=== PATIENT | male | born 1945 | race Caucasian/White ===

== ENCOUNTER → 2019-12-17 08:51 | Outpatient (BNVA) | payer MEDICARE, OTHER, SELFPAY | PROVIDERS: Family Provider Nurse Practitioner Family; PCP Nurse Practitioner Family; Visit Provider Specialist | DX: G20 Parkinson's disease (principal) | CPT/HCPCS: 99214 ==

== ENCOUNTER 2021-11-06 16:53 | Inpatient (IN) | payer OTHER, MEDICARE, SELFPAY ==
[2021-11-06 17:00] VITALS: BP 145/90; PULSE 99; RESP 18; TEMP 37.4; O2SAT 95; BMI 26.6
--- NOTE | 2021-11-06 17:05 | ED_ITS ---
HPI - General Adult General: Chief complaint: Abdominal Pain Stated complaint: CONSTIPATION Time Seen by Provider: 11/06/21 16:56 History of Present Illness: Patient is a 76-year-old male with a history of constipation who presents the emergency room with concerns for generalized abdo sangeetha pain and constipation. Per patient, he has not improved in the last 8 days despite multiple treatments Milk of Magnesia and enema. Patient does me that she he also has mild nonspecific abdominal pain. Patient denies any nausea/vomiting fever/chills, diarrhea, melena/hematochezia. No complaints. No other focal complaints at this time. Onset: 8 days ago Duration:8 days Location:home Severity:moderate Associated symptoms: Deny chest pain, dyspnea, nausea, rash, palpitations or vomiting Review of Systems Const: Denies: fever(s) or chills Eyes: Denies: change in vision ENMT: Denies: mouth pain Card: Denies: chest pain or palpitations Resp: Denies: dyspnea or non-productive cough GI: Reports: other (constipation); Denies: abdominal pain, nausea, vomiting or diarrhea : Denies: dysuria Musc: Denies: extremity pain Skin/Breast: Denies: rash or new lesions Neuro: Denies: weakness in extremities Psych: Reports: other (Normal mood) Momo/Lymph: Denies: easy bruising [facility] ED PFSH: Medical History (Updated 11/07/21 @ 12:30 by Kingsley Mcdonough MD) Parkinson disease Surgical History (Updated 11/07/21 @ 12:30 by Kingsley Mcdonough MD) H/O cataract extraction Family History Father Parkinson disease Grandfather Parkinson disease Social History Smoking and tobacco status: former smoker Quit status (tobacco): has quit using tobacco Year quit tobacco: 30 years ago Physical Exam Const: COMMON NORMALS: alert HENMT: COMMON NORMALS: atraumatic HEAD & SCALP: atraumatic MOUTH: moist mucous membranes not abnormal Eye: COMMON NORMALS: EOMs intact bilaterally and conjunctivae normal CONJUNCTIVA: Yes conjunctivae normal Neck/C-Spine: COMMON NORMALS: full ROM and supple Resp: COMMON NORMALS: normal respiratory effort and clear to auscultation bilaterally AUSCULTATION: clear to auscultation bilaterally Cardio: COMMON NORMALS: regular rate RATE: regular rate GI: COMMON NORMALS: Soft to palpation and non-tender PALPATION: Yes Soft to palpation Extremity: COMMON NORMALS: full ROM Neuro: SENSORIUM/ORIENTATION: Yes alert MOTOR EXAM: No Abnormal motor strength present and Other motor observations present (no focal motor deficits) Psych: COMMON NORMALS: speech normal SPEECH: Yes normal speech MOOD & AFFECT: Yes euthymic mood Course 2 Vital Signs: Vital signs: Vital Signs Temperature 99.0 F 11/10/21 11:33 Pulse Rate 86 11/10/21 11:33 Respiratory Rate 17 11/10/21 11:33 Blood Pressure 112/68 11/10/21 11:33 Pulse Oximetry 92 11/10/21 11:33 [facility] - General Adult Medical Decision Making 86-year-old male with history of Parkinson's disease presenting to the emergency room with decreased stooling possible constipation x8 days. Visible exam, patient has mild generalized abdominal tenderness to palpation. No guarding or rebound tenderness. Patient has minimal white count 7.1. Afebrile. Patient was noted to have constipation on CT scan with possible stercoral colitis. I discussed findings of stercoral colitis with Dr. Mcdonough who recommended obs ervation and GoLytely at this time. No need for antibiotics given patient is afebrile, minimal leukocytosis. We will repeat blood work in a.m. to determine whether stercoral colitis is worsening. Disposition: admission Lab Data : 11/10/21 03:16 11/10/21 03:16 Radiology Impressions Abdomen/Pelvis CT 11/06/21 17:17 IMPRESSION: 1. Constipation with possible fecal impaction. 2. Possible stercoral colitis. Abdomen X-Ray 11/10/21 06:00 IMPRESSION: 1. Moderate gaseous distention of the colon that probably represents a mild colonic ileus. 2. There has been evacuation of most of the stool from the colon since the previous study. Laboratory Results WBC 8.2 10^3/uL (4.0-10.0) 11/08/21 04:22 RBC 5.03 10^6/uL (4.1-5.3) 11/08/21 04:22 Hgb 14.8 g/dL (11.7-16.6) 11/08/21 04:22 Hct 46.3 % (42.0-52.0) 11/08/21 04:22 MCV 92.0 fl (80-94) 11/08/21 04:22 MCH 29.4 pg (28.0-34.0) 11/08/21 04: MCHC 32.0 g/dL (30.0-36.0) 11/08/21 04: RDW 12.3 % (12.1-15.1) 11/08/21 04:22 Plt Count 177 10^3/cmm (130-400) 11/08/21 04:22 MPV 10.0 fL (7.4-10.4) 11/08/21 04:22 Neut % (Auto) 72.8 % 11/08/21 04: Lymph % (Auto) 13.5 % 11/08/21 04: Grainger % (Auto) 10.6 % 11/08/21 04: Eos % (Auto) 2.3 % 11/08/21 04: Baso % (Auto) 0.4 % 11/08/21 04:22 Neut # (Auto) 5.99 10^3/uL (1.8-7.7) 11/08/21 04: Lymph # (Auto) 1.1 10^3/uL (0.8-4.8) 11/08/21 04:22 Grainger # (Auto) 0.9 10^3/uL (0.2-0.9) 11/08/21 04: Eos # (Auto) 0.2 10^3/uL (0.0-0.8) 11/08/21 04:22 Baso # (Auto) 0.0 10^3/uL (0.0-0.1) 11/08/21 04: Nucleated RBC % (auto) 0 % 11/08/21 04: Nucleated RBCs # 0.0 /100WBC 11/08/21 04: PT 14.10 SECONDS (12.1-14.9) 11/06/21 21:45 INR 1.06 (0.8-1.2) 11/06/21 21:45 APTT 19.9 SECONDS (23.9-36.7) L 11/06/21 21:45 Sodium 137 mmol/L (136-145) 11/08/21 09:45 Potassium 3.6 mmol/L (3.5-5.1) 11/08/21 09:45 Chloride 107 mmol/L (98-107) 11/08/21 09:45 Carbon Dioxide 22 mmol/L (22-29) 11/08/21 09:45 Anion Gap 11.6 (5-19) 11/08/21 09:45 BUN 6 mg/dL (8-23) L 11/08/21 09:45 Creatinine 0.5 mg/dL (0.7-1.2) L 11/08/21 09:45 GFR Calculation Not Reportable 11/08/21 09:45 Glucose 136 mg/dL (65-115) H 11/08/21 09:45 Calculated Osmolality 284 mOsm/kg (285-295) L 11/08/21 09:45 Calcium 8.7 mg/dL (8.5-10.5) 11/08/21 09:45 Total Bilirubin 0.6 mg/dL (0.15-1.2) 11/07/21 02:45 AST 11 U/L (0-40) 11/07/21 02:45 ALT < 5 U/L (0-41) 11/07/21 02:45 Alkaline Phosphatase 69 IU/L (40-130) 11/07/21 02:45 Total Protein 6.8 g/dL (6.6-8.7) 11/07/21 02:45 Albumin 3.9 g/dL (3.5-5.2) 11/07/21 02:45 Globulin 2.9 g/dL (1.3-4.6) 11/07/21 02:45 Lipase 24 U/L (13-60) 11/06/21 17:10 Urine Color Colorless (Yellow) 11/06/21 17:20 Urine Appearance Clear (CLEAR) 11/06/21 17:20 Urine pH 7 (5-7) 11/06/21 17:20 Ur Specific [place] 1.010 (1.005-1.030) 11/06/21 17:20 Urine Protein Neg (Negative) 11/06/21 17:20 Urine Glucose (UA) Norm (Normal) 11/06/21 17:20 Urine Ketones 1+ (Negative) H 05/23/22 17:20 Urine Blood Neg (Negative) 11/06/21 17:20 Urine Nitrate Negative (Negative) 11/06/21 17:20 Urine Bilirubin Neg (Negative) 11/06/21 17:20 Urine Urobilinogen Norm mg/dL (Negative) 11/06/21 17:20 Ur Leukocyte Esterase Negative (Negative) 11/06/21 17:20 Imaging Data Other Imaging: Radiologist's impression: [address] [address] [address] Scan Report Signed Patient: Andrew Osman Unit #: [id number] : 1945 Age/Sex: 76 / M ADM Date: 11/06/21 Loc: ER Room/Bed: Attending Dr: Ordering Provider/Ordering MD: Anupama Desai MD Date of Service: 11/06/21 Procedure(s): CT abdomen pelvis wo con [id number] Accession Number(s): [id number] Report Number: [id number] PROCEDURE INFORMATION: Exam: CT Abdomen And Pelvis Without Contrast Exam date and time: 11/06/2021 6:28 PM Age: 76 years old Clinical indication: Constipation; Additional info: Constipation and abd pain TECHNIQUE: Imaging protocol: Computed tomography of the abdomen and pelvis without contrast. Radiation optimization: All CT scans at this facility use at least one of these dose optimization techniques: automated exposure control; mA and/or kV adjustment per patient size (includes targeted exams where dose is matched to clinical indication); or iterative reconstruction. COMPARISON: CT chest wo con [id number] 04/01/2019 9:08 AM RADIATION DOSE METRICS: Total DLP (mGy-cm): 1938 FINDINGS: Limitations: The absence of intravenous contrast lessens the sensitivity of this study for solid organ abnormalities. Study somewhat limited due to streak artifact created by the patient being scanned with the arms at the sides. Diaphragm: A large hiatal hernia is present. Liver: Focal hypodensities inferior right lobe of the liver likely small cysts or benign hemangiomas not significantly changed. Gallbladder and bile ducts: The gallbladder is normal. Pancreas: The pancreas is normal. Spleen: The spleen is normal. Adrenal glands: The adrenal glands are normal. Kidneys and ureters: Probable small cyst arising from the lateral aspect of the mid right kidney. The left kidney is normal. There is no evidence of hydronephrosis. There is no evidence of renal or ureteral calcifications. Stomach and bowel: There is a large amount of feces seen through the colon which could represent some constipation. Very large amount of feces seen in the rectum may represent fecal impaction. There is some mild rectal wall thickening in some mild stranding in the perirectal fat. Findings could represent some stercoral colitis. Appendix: A normal appendix is identified. Intraperitoneal space: Unremarkable. No free air. No significant fluid collection. Vasculature: The aorta demonstrates mild atherosclerotic calcification. Lymph nodes: Unremarkable. No enlarged lymph nodes. Urinary bladder: Unremarkable as visualized. Reproductive: The prostate gland demonstrates nonspecific parenchymal calcifications. Bones/joints: Unremarkable. No acute fracture. Soft tissues: There is small inguinal hernias containing only fat. CT/CT abdomen pelvis wo con [id number] IMPRESSION: 1. Constipation with possible fecal impaction. 2. Possible stercoral colitis. ? Dictated By: Keo Grijalva Signed By: Keo Grijalva Signed Date/Time: 11/06/211921 DD/ 27 Discharge Plan Discharge Patient Disposition: Admitted As Inpatient Admit Provider: Gumaro Urena Clinical Impression: Constipation, Abdominal pain, Stercoral colitis Condition: Stable Discharge Diet: Advance as tolerated, As Directed and Full LIquid Discharge Activity: Increase activity as tolerated Coding Level of Care Code ED Photograph Developer for Isabella Fwd Exam Comprehensive
[2021-11-06 17:06] VITALS: BP 121/90; PULSE 103; RESP 18; TEMP 36.8; O2SAT 95
[2021-11-06 17:15] LABS: Basophils % 0.6 %; Eosinophils # 0.1 10^3/uL (0.0-0.8); Eosinophils % 1.7 %; Hematocrit 46.3 % (42.0-52.0); Lymphocytes # 1.3 10^3/uL (0.8-4.8); Lymphocytes % 18.8 %; Mean Corpuscular HGB Conc 32.4 g/dL (30.0-36.0); Mean Corpuscular Volume 89.6 fl (80-94); Mean Platelet Volume 9.5 fL (7.4-10.4); Monocytes # 0.7 10^3/uL (0.2-0.9); Neutrophils # 4.88 10^3/uL (1.8-7.7); Neutrophils % 68.6 %; Nucleated Red Blood Cells % 0 %; Platelet Count 200 10^3/cmm (130-400); Red Blood Count 5.17 10^6/uL (4.1-5.3); White Blood Count 7.1 10^3/uL (4.0-10.0)
--- NOTE | 2021-11-06 17:17 | CTR_ITS ---
PROCEDURE INFORMATION: Exam: CT Abdomen And Pelvis Without Contrast Exam date and time: 11/06/2021 6:28 PM Age: 76 years old Clinical indication: Constipation; Additional info: Constipation and abd pain TECHNIQUE: Imaging protocol: Computed tomography of the abdomen and pelvis without contrast. Radiation optimization: All CT scans at this facility use at least one of these dose optimization techniques: automated exposure control; mA and/or kV adjustment per patient size (includes targeted exams where dose is matched to clinical indication); or iterative reconstruction. COMPARISON: CT chest wo con [id number] 04/01/2019 9:08 AM RADIATION DOSE METRICS: Total DLP (mGy-cm): 1938 FINDINGS: Limitations: The absence of intravenous contrast lessens the sensitivity of this study for solid organ abnormalities. Study somewhat limited due to streak artifact created by the patient being scanned with the arms at the sides. Diaphragm: A large hiatal hernia is present. Liver: Focal hypodensities inferior right lobe of the liver likely small cysts or benign hemangiomas not significantly changed. Gallbladder and bile ducts: The gallbladder is normal. Pancreas: The pancreas is normal. Spleen: The spleen is normal. Adrenal glands: The adrenal glands are normal. Kidneys and ureters: Probable small cyst arising from the lateral aspect of the mid right kidney. The left kidney is normal. There is no evidence of hydronephrosis. There is no evidence of renal or ureteral calcifications. Stomach and bowel: There is a large amount of feces seen through the colon which could represent some constipation. Very large amount of feces seen in the rectum may represent fecal impaction. There is some mild rectal wall thickening in some mild stranding in the perirectal fat. Findings could represent some stercoral colitis. Appendix: A normal appendix is identified. Intraperitoneal space: Unremarkable. No free air. No significant fluid collection. Vasculature: The aorta demonstrates mild atherosclerotic calcification. Lymph nodes: Unremarkable. No enlarged lymph nodes. Urinary bladder: Unremarkable as visualized. Reproductive: The prostate gland demonstrates nonspecific parenchymal calcifications. Bones/joints: Unremarkable. No acute fracture. Soft tissues: There is small inguinal hernias containing only fat. CT/CT abdomen pelvis wo con [id number] IMPRESSION: 1. Constipation with possible fecal impaction. 2. Possible stercoral colitis.
[2021-11-06 17:27] LABS: Add Urine Microscopic? NO; Charge for UA Resulting for Rev
[2021-11-06 17:39] LABS: Glucose Urine UA Norm (Normal); Protein Urine Neg (Negative); Urine Appearance Clear (CLEAR); Urine Color Colorless (Yellow); pH Urine 7 (5-7)
[2021-11-06 17:40] LABS: Bilirubin Urine Neg (Negative); Blood Urine Neg (Negative); Ketones Urine 1+ (Negative); Leukocyte Esterase Urine Negative (Negative); Nitrate Urine Negative (Negative); Urobilinogen Urine Norm (Negative)
[2021-11-06 18:16] LABS: Alanine Aminotransferase < 5 U/L (0-41); Albumin Level 4.3 g/dL (3.5-5.2); Alkaline Phosphatase 70 IU/L (40-130); Anion Gap 13.9 (5-19); Aspartate Amino Transferase 10 U/L (0-40); Blood Urea Nitrogen 7 mg/dL (8-23); Calcium 9.2 mg/dL (8.5-10.5); Carbon Dioxide 26 mmol/L (22-29); Chloride 102 mmol/L (98-107); Globulin 2.4 g/dL (1.3-4.6); Glucose 105 mg/dL (65-115); Lipase 24 U/L (13-60); Osmolality Calculated 284 mOsm/kg (285-295); Potassium 3.9 mmol/L (3.5-5.1); Sodium 138 mmol/L (136-145); Total Bilirubin 0.5 mg/dL (0.15-1.2); Total Protein 6.7 g/dL (6.6-8.7)
[2021-11-06 18:54] VITALS: BP 138/61; PULSE 88; RESP 18; TEMP 36.6; O2SAT 97
--- NOTE | 2021-11-06 19:06 | PC.NURSE ---
Received report. 76 yo male presents with abdominal discomfort and no BM x 8 days even with MOM and enema. He has advanced Parkinsons dz and states patient appetite has dwindled coupled with bad dentation. and it seems its getting more difficult for him to drink fluids without getting choked. awaiting CT results.
--- NOTE | 2021-11-06 20:21 | PM.HP ---
Providers/Chief Complaint Chief Complaint: CONSTIPATION History of Present Illness Patient is a 76-year-old male who presents with chief complaint of constipation.? He indicates that his last bowel movement was possibly 8 days prior to hospitalization.? Per the patient?s daughter, he was administered milk of magnesia as well as enemas however this did not improve this.? She indicates that his constipation has been recurrent since the diagnosis/progression of his Parkinson?s disease.? The patient does not take narcotics at home.? He denies fever, rigors, nausea, vomiting, abdominal pain. ?He presented for further evaluation Review of Systems General: Reports: 10 or more systems reviewed and unremarkable except in HPI and below Medications/Allergies Home Medications Medication Instructions Recorded Confirmed Last Taken Type omeprazole 20 mg capsule,delayed 20 mg PO DAILY 12/17/19 11/06/21 11/06/21 History release carbidopa 25 mg-levodopa 100 mg See Rx Instructions PO TID #720 tab 06/27/20 11/06/21 11/06/21 Rx tablet (Sinemet) Lift Chair #1 ea 06/28/20 11/06/21 Unknown Rx docusate calcium 240 mg capsule 240 mg PO DAILY PRN #20 cap 11/06/21 Unknown Rx mirtazapine 7.5 mg tablet 7.5 mg PO BEDTIME 11/06/21 11/06/21 11/05/21 History polyethylene glycol 3350 17 8.5 g PO DAILY PRN 28 Days #238 g 11/06/21 Unknown Rx gram/dose oral powder (Miralax) Allergies Allergy/AdvReac Type Severity Reaction Status Date / Time No Known Allergies Allergy Verified 11/06/21 17:29 PFSH Acute PFSH: Family History Father Parkinson disease Grandfather Parkinson disease Social History Smoking and tobacco status: former smoker Quit status (tobacco): has quit using tobacco Year quit tobacco: 30 years ago Vitals/I&O/Wt Last Vital Signs Temp 97.9 F 11/06/21 18:54 Pulse 88 11/06/21 18:54 Resp 18 11/06/21 18:54 BP 138/61 11/06/21 18:54 Pulse Ox 97 11/06/21 18:54 Weight last 48 hrs Weight 81.647 kg Physical Exam Narrative: General: -Alert -No acute distress -No dyspnea -No tachypnea Head: -Atraumatic -Normocephalic Eyes: -Pupils equally round and reactive to light and accommodation -Extraocular muscles intact Neurological: -Cranial nerves II-XII intact Neck: -No jugular venous distention -No thyromegaly -No cervical lymphadenopathy Heart: -Regular rate -Regular rhythm -No murmurs -No gallops -No rubs Lungs: -No wheeze -No rhonchi -No rales ? Abdomen: -Normal bowel sounds in all four quadrants -No rebound -No guarding -No tenderness Extremities: -2/4 pulse in all four extremities -No clubbing -No cyanosis -No edema -No calf tenderness present bilaterally -Negative Christoph?s sign bilaterally Musculoskeletal: -5/5 bilateral upper extremity strength -5/5 bilateral lower extremity strength -Sensorium of bilateral upper extremities are equal and intact -Sensorium of bilateral lower extremities are equal and intact ? Additional Details / Additional Findings / Exceptions / Miscellaneous: Data : 11/06/21 17:10 11/06/21 17:10 A&P Assessment and plan (1) Constipation: Status: Acute Plan constipation with question of fecal impaction and with question of stercoral colitis. Nothing by mouth. D5 NS at 75 ML's per hour. Colace 200 Mill grams by mouth twice a day plus senna 17.2 Mill cans by mouth twice a day. Patient will see Fleet enema every 4 hours ?3 doses with stoppage after first large bowel movement. If we do not see a large bowel movement within the next 12 hours, we may consider consulting surgery for surgical disimpaction Parkinson's disease GERD Hyperlipidemia Hypertension DVT Proflex is. Bilateral SCD Attestations Medical Necessity Statement*: the patient's anticipate length of stay is less than 2 midnights for treatment of his constipation Coding Level of Care Code Acute Financial Analyst Accountant for Isabella Velazquez Diagnoses Constipation K59.00
[2021-11-06 21:28] VITALS: BP 136/83; PULSE 95; RESP 20; O2SAT 96
[2021-11-06 22:02] LABS: INR 1.06 (0.8-1.2); Partial Thromboplastin Time 19.9 SECONDS (23.9-36.7)
[2021-11-06 22:24] VITALS: BP 140/82; PULSE 93; RESP 18; TEMP 36.6; O2SAT 94
--- NOTE | 2021-11-06 22:37 | PC.NURSE ---
[facility] brought Mr. Osman to the floor and Mrs. Osman was following behind. During transport in the vidal by CT Alison stated taht she heard Mrs. Osman trip and fall and then she assisted her back to her feet. Once to the floor Alison notified this nurse. This nurse went into the room and spoke to Mrs. Osman and encouraged her to go to the ER to be evaluated but she declined. Advised her that if she changed her mind to let us know and we would take her to the ER to be evaluated, she verbalized understanding.
[2021-11-06] MEDS: acetaminophen 325 mg Tablet 650 MG PO (23:01)
[2021-11-06] MEDS: dextrose 5%-sod chloride 0.9% 1,000 ML 75 ML IV (23:01)
[2021-11-06] MEDS: Fleet Enema 133 mL Enema PR (23:27)
[2021-11-07 03:12] LABS: Basophils % 0.5 %; Eosinophils # 0.1 10^3/uL (0.0-0.8); Eosinophils % 1.3 %; Lymphocytes # 0.7 10^3/uL (0.8-4.8); Lymphocytes % 9.7 %; Mean Corpuscular HGB Conc 31.9 g/dL (30.0-36.0); Mean Corpuscular Hemoglobin 29.1 pg (28.0-34.0); Mean Corpuscular Volume 91.3 fl (80-94); Mean Platelet Volume 9.8 fL (7.4-10.4); Monocytes # 0.8 10^3/uL (0.2-0.9); Monocytes % 10.9 %; Neutrophils # 5.75 10^3/uL (1.8-7.7); Neutrophils % 77.2 %; Nucleated Red Blood Cells % 0 %; Platelet Count 191 10^3/cmm (130-400); Red Blood Count 5.15 10^6/uL (4.1-5.3); White Blood Count 7.5 10^3/uL (4.0-10.0)
[2021-11-07 03:14] VITALS: BP 139/80; PULSE 96; RESP 18; TEMP 36.4; O2SAT 95
[2021-11-07 03:34] LABS: Alanine Aminotransferase < 5 U/L (0-41); Albumin Level 3.9 g/dL (3.5-5.2); Alkaline Phosphatase 69 IU/L (40-130); Anion Gap 14.2 (5-19); Aspartate Amino Transferase 11 U/L (0-40); Blood Urea Nitrogen 8 mg/dL (8-23); Calcium 8.8 mg/dL (8.5-10.5); Carbon Dioxide 23 mmol/L (22-29); Chloride 103 mmol/L (98-107); Globulin 2.9 g/dL (1.3-4.6); Glucose 126 mg/dL (65-115); Osmolality Calculated 282 mOsm/kg (285-295); Potassium 4.2 mmol/L (3.5-5.1); Sodium 136 mmol/L (136-145); Total Bilirubin 0.6 mg/dL (0.15-1.2); Total Protein 6.8 g/dL (6.6-8.7)
[2021-11-07] MEDS: Fleet Enema 133 mL Enema PR ×2 (04:18→08:40)
[2021-11-07 08:00] VITALS: BP 149/79; PULSE 93; RESP 20; TEMP 37.9; O2SAT 94
[2021-11-07] MEDS: docusate sodium 100 mg Capsule 200 MG PO ×2 (08:39→18:11)
[2021-11-07] MEDS: acetaminophen 325 mg Tablet 650 MG PO ×2 (08:39→18:11)
[2021-11-07] MEDS: sennosides 8.6 mg Tablet 17.2 MG PO ×2 (08:39→18:11)
[2021-11-07] MEDS: piperacillin-tazobactam 3.375 GM in sodium chloride 0.9% (plus) 50 ML IV ×2 (11:10→18:04)
[2021-11-07 11:44] VITALS: BP 135/77; PULSE 90; RESP 21; TEMP 37.7; O2SAT 93
[2021-11-07] MEDS: dextrose 5%-sod chloride 0.9% 1,000 ML 75 ML IV (12:21)
--- NOTE | 2021-11-07 12:28 | PM.CONSULT ---
Providers/Reason For Consult Consulting Physician/Specialty*: General Surgery Dr. Mcdonough Reason for Consult*: Stercoral colitis Attending Physician: Robert Hudson History of Present Illness History of Present Illness Andrew Osman is a 76 year old male who presented to the ER yesterday with abdominal pain and constipation in spite of taking milk of magnesia and enemas for multiple days. He denies any nausea, vomiting and his pain is mainly in the lower abdomen. No similar episodes in the past. Patient has history of Parkinson's disease. As per his , there has been no significant bleeding per rectum Review of Systems General: Reports: 10 or more systems reviewed and unremarkable except in HPI and below Medications/Allergies Home Medications Medication Instructions Recorded Confirmed Last Taken Type omeprazole 20 mg capsule,delayed 20 mg PO DAILY 12/17/19 11/06/21 11/06/21 History release carbidopa 25 mg-levodopa 100 mg See Rx Instructions PO TID #720 tab 06/27/20 11/06/21 11/06/21 Rx tablet (Sinemet) Lift Chair #1 ea 06/28/20 11/06/21 Unknown Rx docusate calcium 240 mg capsule 240 mg PO DAILY PRN #20 cap 11/06/21 Unknown Rx mirtazapine 7.5 mg tablet 7.5 mg PO BEDTIME 11/06/21 11/06/21 11/05/21 History polyethylene glycol 3350 17 8.5 g PO DAILY PRN 28 Days #238 g 11/06/21 Unknown Rx gram/dose oral powder (Miralax) acetaminophen 325 mg tablet 325 mg PO QID PRN 11/07/21 11/07/21 Unknown History (Tylenol) food supplemt, lactose-reduced 1 ea PO DAILY 11/07/21 11/07/21 Unknown History 0.04 gram-1 kcal/mL oral liquid (Boost) ondansetron HCl 4 mg tablet 4 mg PO Q4H PRN 11/07/21 11/07/21 Unknown History Allergies Allergy/AdvReac Type Severity Reaction Status Date / Time No Known Allergies Allergy Verified 11/06/21 17:29 Current Medications Generic Name Dose Route Start Last Admin Trade Name Freq PRN Reason Stop Dose Admin Acetaminophen 650 mg 11/06/21 22:20 11/07/21 08:39 Acetaminophen 325 Mg Tablet PO 650 mg Q6H PRN Administration Mild/Mod Pain Or Temp >/= 101 Docusate Sodium 200 mg 11/07/21 09:00 11/07/21 08:39 Docusate Sodium 100 Mg Capsule PO 200 mg BID GEE Administration Dextrose/Sodium Chloride 1,000 mls @ 75 mls/hr 11/06/21 22:20 11/07/21 12:21 Dextrose 5%-Sod Chloride 0.9% IV 75 mls/hr .[id number] GEE Administration Piperacillin Sod/Tazobactam 50 mls @ 12.5 mls/hr 11/07/21 09:00 11/07/21 11:10 Sod 3.375 gm/ Sodium Chloride IV 12.5 mls/hr Q8H GEE Administration Protocol Senna 17.2 mg 11/07/21 09:00 11/07/21 08:39 Sennosides 8.6 Mg Tablet PO 17.2 mg BID GEE Administration PFSH Acute PFSH: Medical History (Updated 11/07/21 @ 12:30 by Kingsley Mcdonough MD) Parkinson disease Surgical History (Updated 11/07/21 @ 12:30 by Kingsley Mcdonough MD) H/O cataract extraction Family History Father Parkinson disease Grandfather Parkinson disease Social History Smoking and tobacco status: former smoker Quit status (tobacco): has quit using tobacco Year quit tobacco: 30 years ago Vitals/I&O/Wt Last Vital Signs Temp 99.8 F H 11/07/21 11:44 Pulse 90 11/07/21 11:44 Resp 21 H 11/07/21 11:44 BP 135/77 11/07/21 11:44 Pulse Ox 93 11/07/21 11:44 11/06/21 11/07/21 11/07/21 22:59 06:59 14:59 Intake Total 1018 / 1018 Output Total 125 / 125 Balance -125 / -125 1018 / 1018 Weight last 48 hrs Weight 180 lb Physical Exam Narrative: Abdomen: Soft to palpation, mildly tender in the left lower quadrant Urinary Catheter Management: Jennings: Cath Placed During This Visit: yes Reason for Continuing Indwelling Catheter: Required Immobilization for Trauma or Surgery or Anesthesia Urinary Catheter Date of Insertion: 11/07/21 Urinary Catheter Time of Insertion: 23:45 Data : 11/09/21 04:45 11/09/21 04:45 A&P Assessment and plan (1) Constipation: 76-year-old male on hospice with chronic constipation who has mild tenderness in the left lower quadrant, no guarding or rigidity on physical exam. CT abdomen pelvis showed constipation with severe possible stercoral colitis . Admit as inpatient Start MiraLAX and enemas today Abdominal series tomorrow Status: Acute (2) Stercoral colitis: Patient had T-max of 100+, continue IV Zosyn Status: Acute Consult Attestations Medical Necessity Statement: As per attending physician Coding Level of Care Code Acute Artistic Associate for Isabella Velazquez Diagnoses Constipation K59.00 Stercoral colitis K52.89
--- NOTE | 2021-11-07 15:47 | P.PN_ITS ---
Subjective Subjective: Small liquid bowel movements, has not yet had a large bowel movement. Having some rectal discomfort. Discussed with him and his regarding fever this morning. Discussed regarding initiating antibiotic with Zosyn. Vitals/I&O/Wt Last Vital Signs Temp 99.8 F H 11/07/21 11:44 Pulse 90 11/07/21 11:44 Resp 21 H 11/07/21 11:44 BP 135/77 11/07/21 11:44 Pulse Ox 93 11/07/21 11:44 11/07/21 11/07/21 11/07/21 06:59 14:59 22:59 Intake Total 1018 / 1018 50 / 1068 Output Total 125 / 125 Balance -125 / -125 1018 / 1018 50 / 1068 Weight last 48 hrs Weight 81.647 kg Physical Exam Narrative: is at bedside Const: COMMON NORMALS: alert GENERAL APPEARANCE: cooperative and frail appearing ORIENTATION/CONSCIOUSNESS: Yes awake OTHER: Generally weak. Resting tremor with Parkinson's disease. HENMT: COMMON NORMALS: normocephalic, EAC's normal, Normal external nose present and moist oral mucous membranes HEAD & SCALP: normocephalic NOSE: Normal external nose present EXTERNAL AUDITORY CANAL: EAC's normal Neck/C-Spine: COMMON NORMALS: no meningeal signs Chest: CHEST: Yes Symmetrical chest wall rise Resp: COMMON NORMALS: clear to auscultation bilaterally AUSCULTATION: clear to auscultation bilaterally Cardio: COMMON NORMALS: regular rate, regular rhythm and No murmurs present (Cardio) RATE: regular rate RHYTHM: regular rhythm GI: COMMON NORMALS: Normal to inspection, nondistended, normoactive bowel sounds present, Soft to palpation and non-tender PALPATION: Yes Soft to palpation Extremity: COMMON NORMALS: no pedal edema Neuro: COMMON NORMALS: moves all extremities SENSORIUM/ORIENTATION: Yes alert MENINGEAL SIGNS: Yes no meningeal signs Psych: COMMON NORMALS: mental status grossly normal Skin: COMMON NORMALS: no wounds NARRATIVE SKIN EXAM: Multiple moles RASHES: no rashes Urinary Catheter Management: Jennings: Cath Placed During This Visit: yes Reason for Continuing Indwelling Catheter: Required Immobilization for Trauma or Surgery or Anesthesia Urinary Catheter Date of Insertion: 11/07/21 Urinary Catheter Time of Insertion: 23:45 Data : 11/07/21 02:45 11/07/21 02:45 A&P Assessment and plan (1) Constipation: Possible colitis, fever this morning 100.2 Fahrenheit. Discussed with him and his starting empiric antibiotic with Zosyn. Stercoral colitis. 2 small liquid bowel movements. Continue received additional enemas. Appreciate surgical evaluation. Discussed will need long-term intensive bowel regimen to avoid recurrence of constipation. Status: Acute Plan Parkinson's disease GERD Hyperlipidemia Hypertension DVT Proflex is. Bilateral SCD Attestations Medical Necessity Statement*: Continue hospitalization for assessment management of severe constipation with stercoral colitis. Coding Level of Care Code Acute Airplane Refueler for g Fwd Exam Comprehensive Diagnoses Constipation K59.00
[2021-11-07 15:55] VITALS: BP 137/79; PULSE 72; RESP 17; TEMP 37.8; O2SAT 93
[2021-11-07 20:34] VITALS: BP 143/75; PULSE 83; RESP 20; TEMP 37; O2SAT 95
[2021-11-07] MEDS: carbidopa-levodopa 25-100mg Tablet 2 EACH PO (21:34)
[2021-11-07] MEDS: mirtazapine 15 mg Tablet 7.5 MG PO (21:34)
--- NOTE | 2021-11-07 23:54 | PC.NURSE ---
2 out of 3 milk of molasses enema was given, mixed with a 1:1 ratio. No resistance was met when inserting the tube. Pt tolerated the procedure well and was able to retain about 2/3 of the mixture. Patient was cleaned up and turned onto side with head of bed slightly elevated.
[2021-11-08] MEDS: piperacillin-tazobactam 3.375 GM in sodium chloride 0.9% (plus) 50 ML IV ×3 (02:08→18:07)
[2021-11-08] MEDS: dextrose 5%-sod chloride 0.9% 1,000 ML 75 ML IV ×2 (02:08→15:36)
[2021-11-08 02:11] VITALS: BP 157/88; PULSE 85; RESP 22; TEMP 36.9; O2SAT 93
--- NOTE | 2021-11-08 05:15 | PC.NURSE ---
3 out of 3 milk of molasses enema was administered. Patient tolerated the procedure well and was able to hold half of the mixture. Patient was cleaned and repositioned.
[2021-11-08 05:20] LABS: Basophils % 0.4 %; Eosinophils # 0.2 10^3/uL (0.0-0.8); Eosinophils % 2.3 %; Hematocrit 46.3 % (42.0-52.0); Hemoglobin 14.8 g/dL (11.7-16.6); Lymphocytes # 1.1 10^3/uL (0.8-4.8); Lymphocytes % 13.5 %; Mean Corpuscular Hemoglobin 29.4 pg (28.0-34.0); Monocytes # 0.9 10^3/uL (0.2-0.9); Monocytes % 10.6 %; Neutrophils # 5.99 10^3/uL (1.8-7.7); Neutrophils % 72.8 %; Nucleated Red Blood Cells % 0 %; Platelet Count 177 10^3/cmm (130-400); Red Blood Count 5.03 10^6/uL (4.1-5.3); Red Cell Distribution Width 12.3 % (12.1-15.1); White Blood Count 8.2 10^3/uL (4.0-10.0)
[2021-11-08 05:45] VITALS: BP 160/89; PULSE 80; RESP 20; TEMP 36.8; O2SAT 94
[2021-11-08 08:00] VITALS: BP 142/76; PULSE 74; RESP 16; TEMP 37.2; O2SAT 96
[2021-11-08] MEDS: sennosides 8.6 mg Tablet 17.2 MG PO ×2 (09:07→18:07)
[2021-11-08] MEDS: docusate sodium 100 mg Capsule 200 MG PO ×2 (09:08→18:06)
[2021-11-08] MEDS: polyethylene glycol 3350 Pkt 17 gm PO ×2 (09:09→18:06)
[2021-11-08] MEDS: carbidopa-levodopa 25-100mg Tablet 2 EACH PO ×4 (09:09→21:23)
[2021-11-08] MEDS: pantoprazole 40 mg SDV IVP (09:09)
[2021-11-08] MEDS: bisacodyl 10 mg Supp PR (09:10)
--- NOTE | 2021-11-08 10:12 | PC.CHAP ---
Pastoral Care Encounter/Spiritual Assessment Type of Contact [] Declined sand slinger operator visit [] Patient/Family/Request visit [] Outpatient visit [] Follow-up visit [] Physician referral [] Code/Alert [x] Routine visit [] Staff referral [] Actively dying [] Patient sleeping [] Family support [] [] Out of room [] Palliative care [] [] Receiving care in room [] Pre-surgical visit [] Trauma [] Long length of stay [] ICU visit [] Other: Relational/Emotional Strength [x] Patient feels connected with others/family/visitors/staff [] Distress [] Loneliness/isolation [] Abandonment Spirituality of Patient [x] Person of Mikala [] Attends Protestant of their Mikala [x] Believes in Prayer x] Reads Bible or Evangelical materials [] There are Spiritual issues to be addressed Health Service Coordinator Interventions [x] Prayer [x] Active listening [x] Non-anxious presence [x] Spiritual/emotional support [] Crisis/trauma care [] Spiritual counseling [] Bereavement support [] Provided bereavement packet [] Provided Bible/devotional materials [] Provided toy/stuffed animal, coloring book to patient or family member [] Provided Communion [] Anointing/Lissie [] Salvation [x] Completed spiritual assessment [] Other: Impact on Illness or Injury [] Angry [] Fearful [] Anxious [] Often cries [] Exhaustion [] Unable to work [] Unable to attend faith [] Unable to walk/stand [] Unable to read [] Unable to drive [] Unable to eat/drink [] Unable to sleep [] Unable to be with family [] Patient intubated [] Other: Summary Time spent with patient 10 min
[2021-11-08 10:34] LABS: Anion Gap 11.6 (5-19); Blood Urea Nitrogen 6 mg/dL (8-23); Calcium 8.7 mg/dL (8.5-10.5); Carbon Dioxide 22 mmol/L (22-29); Chloride 107 mmol/L (98-107); Glucose 136 mg/dL (65-115); Osmolality Calculated 284 mOsm/kg (285-295); Potassium 3.6 mmol/L (3.5-5.1); Sodium 137 mmol/L (136-145)
--- NOTE | 2021-11-08 11:25 | XR_ITS ---
WS: [id number] Exam: XR abdomen min 2V 70024 Date/Time of Exam: 11/08/2021 11:33 AM Reason For Exam: sbo There are scattered gas in both large and small bowel loops suggesting adynamic ileus. Large amount r etained stool seen in the colon. No sign of pneumoperitoneum. No sign of obvious organ enlargement. B lonnie structures are intact. XR/XR abdomen min 2V [id number] IMPRESSION: 1. Findings suggest mild adynamic ileus. 2. Constipation.
[2021-11-08 11:33] VITALS: BP 116/70; PULSE 82; RESP 16; TEMP 36.9; O2SAT 92
--- NOTE | 2021-11-08 12:03 | PM.PN ---
Subjective Subjective: Patient has less pain today, no nausea or vomiting, had couple of bowel movements Medications: Reviewed: Yes Vitals/I&O/Wt Last Vital Signs Temp 98.5 F 11/08/21 11:33 Pulse 82 11/08/21 11:33 Resp 16 11/08/21 11:33 BP 116/70 11/08/21 11:33 Pulse Ox 92 11/08/21 11:33 11/07/21 11/08/21 11/08/21 22:59 06:59 14:59 Intake Total 100 / 2168 1050 / 2168 Output Total 375 / 375 Balance 100 / 1793 675 / 1793 Weight last 48 hrs Weight 180 lb Physical Exam Narrative: Abdomen: Soft, less tender, less distended today Urinary Catheter Management: Jennings: Cath Placed During This Visit: yes Reason for Continuing Indwelling Catheter: Hospice/Comfort/Palliative Care Urinary Catheter Date of Insertion: 11/07/21 Urinary Catheter Time of Insertion: 23:45 Data : 11/08/21 04:22 11/08/21 09:45 A&P Assessment and plan (1) Constipation: 76-year-old male admitted with suspected stercoral colitis currently on IV Zosyn. Clinically his abdomen is benign, less distended, minimally tender Continue with antibiotics Abdominal series today If he continues to remain constipated patient would benefit from a Gastrografin enema tomorrow which will be both diagnostic and therapeutic Discussed with his about maintaining an aggressive daily bowel regimen using laxatives. Status: Acute Attestations Medical Necessity Statement*: As per primary Coding Level of Care Code Acute Ice Maker for [facility] Caroline Diagnoses Constipation K59.00
--- NOTE | 2021-11-08 12:23 | P.PN_ITS ---
Subjective Subjective: Had a moderate liquid bowel movement yesterday after enemas. Still some discomfort in his rectum. No vomiting. We will try clear liquid diet. Vitals/I&O/Wt Last Vital Signs Temp 98.5 F 11/08/21 11:33 Pulse 82 11/08/21 11:33 Resp 16 11/08/21 11:33 BP 116/70 11/08/21 11:33 Pulse Ox 92 11/08/21 11:33 11/07/21 11/08/21 11/08/21 22:59 06:59 14:59 Intake Total 100 / 1118 1050 / 2168 Output Total 375 / 375 Balance 100 / 1118 675 / 1793 Weight last 48 hrs Weight 81.647 kg Physical Exam Narrative: is at bedside Const: COMMON NORMALS: alert GENERAL APPEARANCE: cooperative and frail appearing ORIENTATION/CONSCIOUSNESS: Yes awake OTHER: Generally weak. Resting tremor with Parkinson's disease. HENMT: COMMON NORMALS: normocephalic, EAC's normal, Normal external nose p resent and moist oral mucous membranes HEAD & SCALP: normocephalic NOSE: Normal external nose present EXTERNAL AUDITORY CANAL: EAC's normal Neck/C-Spine: COMMON NORMALS: no meningeal signs Chest: CHEST: Yes Symmetrical chest wall rise Resp: COMMON NORMALS: clear to auscultation bilaterally AUSCULTATION: clear to auscultation bilaterally Cardio: COMMON NORMALS: regular rate, regular rhythm and No murmurs present (Cardio) RATE: regular rate RHYTHM: regular rhythm GI: COMMON NORMALS: Soft to palpation and non-tender PALPATION: Yes Soft to palpation Extremity: COMMON NORMALS: no pedal edema Neuro: COMMON NORMALS: moves all extremities SENSORIUM/ORIENTATION: Yes alert MENINGEAL SIGNS: Yes no meningeal signs Psych: COMMON NORMALS: mental status grossly normal Skin: COMMON NORMALS: no wounds NARRATIVE SKIN EXAM: Multiple moles RASHES: no rashes Urinary Catheter Management: Jennings: Cath Placed During This Visit: yes Reason for Continuing Indwelling Catheter: Hospice/Comfort/Palliative Care Urinary Catheter Date of Insertion: 11/07/21 Urinary Catheter Time of Insertion: 23:45 Data : 11/08/21 04:22 11/08/21 09:45 A&P Assessment and plan (1) Constipation: Moderate liquid bowel movement yesterday. Continues with enemas. Continue bowel regimen. Fever so far has resolved continue. Zosyn with possible colitis. Stercoral colitis. Appreciate surgical evaluation. Trial of CLD. Discussed will need long-term intensive bowel regimen to avoid recurrence of constipation. Status: Acute Plan Parkinson's disease: reports occasionally coughs with thin liquids. Requested speech therapy evaluation. GERD Hyperlipidemia Hypertension DVT Proflex is. Bilateral SCD On hospice care Attestations Medical Necessity Statement*: Continue hospitalization for assessment of management of severe symptomatic constipation. Coding Level of Care Code Acute Railway Patrol Officer for Isabella Vel[facility]quez Diagnoses Constipation K59.00
[2021-11-08 15:29] VITALS: BP 130/77; PULSE 84; RESP 20; TEMP 36.8; O2SAT 94
[2021-11-08] MEDS: methylnaltrexone 12 /0.6 mL INJ 12 MG SUBCUT (15:30)
[2021-11-08 20:00] VITALS: BP 132/79; PULSE 81; RESP 16; TEMP 37; O2SAT 95
[2021-11-08] MEDS: mirtazapine 15 mg Tablet 7.5 MG PO (21:24)
[2021-11-09] VITALS: BP 118/83; PULSE 93; RESP 15; TEMP 36.9; O2SAT 98
[2021-11-09] MEDS: piperacillin-tazobactam 3.375 GM in sodium chloride 0.9% (plus) 50 ML IV ×3 (03:11→18:41)
[2021-11-09 03:51] VITALS: BP 117/70; PULSE 75; RESP 19; TEMP 36.9; O2SAT 95
[2021-11-09] MEDS: dextrose 5%-sod chloride 0.9% 1,000 ML 75 ML IV ×2 (05:40→20:20)
[2021-11-09 06:09] LABS: Basophils % 0.4 %; Eosinophils # 0.3 10^3/uL (0.0-0.8); Eosinophils % 4.8 %; Hemoglobin 14.2 g/dL (11.7-16.6); Lymphocytes # 1.4 10^3/uL (0.8-4.8); Lymphocytes % 19.4 %; Mean Corpuscular Hemoglobin 29.5 pg (28.0-34.0); Mean Corpuscular Volume 89.2 fl (80-94); Mean Platelet Volume 10.2 fL (7.4-10.4); Monocytes # 0.7 10^3/uL (0.2-0.9); Monocytes % 9.8 %; Neutrophils # 4.58 10^3/uL (1.8-7.7); Nucleated Red Blood Cells % 0 %; Platelet Count 166 10^3/cmm (130-400); Red Blood Count 4.82 10^6/uL (4.1-5.3); Red Cell Distribution Width 12.2 % (12.1-15.1); White Blood Count 7.1 10^3/uL (4.0-10.0)
[2021-11-09 06:14] LABS: Potassium 3.9 mmol/L (3.5-5.1)
[2021-11-09 06:29] LABS: Anion Gap 15.9 (5-19); Blood Urea Nitrogen 4 mg/dL (8-23); Calcium 8.6 mg/dL (8.5-10.5); Carbon Dioxide 19 mmol/L (22-29); Chloride 108 mmol/L (98-107); Glucose 96 mg/dL (65-115); Osmolality Calculated 285 mOsm/kg (285-295); Sodium 139 mmol/L (136-145)
[2021-11-09 07:37] VITALS: BP 141/84; PULSE 79; RESP 20; TEMP 37.3; O2SAT 94
[2021-11-09] MEDS: peg /e-lyte soln 4,000 mL Btl 1500 ML PO (08:12)
--- NOTE | 2021-11-09 10:07 | PC.CHAP ---
Pastoral Care Encounter/Spiritual Assessment Type of Contact [] Declined weatherization director visit [] Patient/Family/Request visit [] Outpatient visit [] Follow-up visit [] Physician referral [] Code/Alert [x] Routine visit [] Staff referral [] Actively dying [] Patient sleeping [] Family support [] [] Out of room [] Palliative care [] [x] Receiving care in room [] Pre-surgical visit [] Trauma [] Long length of stay [] ICU visit [] Other: Relational/Emotional Strength [x] Patient feels connected with others/family/visitors/staff [] Distress [] Loneliness/isolation [] Abandonment Spirituality of Patient [x] Person of Mikala [] Attends Episcopal of their Mikala [x] Believes in Prayer [] Reads Bible or Mu-Ism materials [] There are Spiritual issues to be addressed Air Value Tester Interventions [x] Prayer [x] Active listening [x] Non-anxious presence [x] Spiritual/emotional support [] Crisis/trauma care [x] Spiritual counseling [] Bereavement support [] Provided bereavement packet [] Provided Bible/devotional materials [] Provided toy/stuffed animal, coloring book to patient or family member [] Provided Communion [] Anointing/Brilliant [] Salvation [x] Completed spiritual assessment [] Other: Impact on Illness or Injury [] Angry [] Fearful [] Anxious [] Often cries [] Exhaustion [] Unable to work [] Unable to attend druze [] Unable to walk/stand [] Unable to read [] Unable to drive [] Unable to eat/drink [] Unable to sleep [] Unable to be with family [] Patient intubated [] Other: Summary bowel doing better has a good attitude going home +1 Time spent with patient 10 mins
--- NOTE | 2021-11-09 10:24 | PM.PN ---
Subjective Subjective: Patient is trying GoLytely today, still has abdominal pain, no significant bowel movements today but had couple yesterday Vitals/I&O/Wt Last Vital Signs Temp 99.2 F 11/09/21 07:37 Pulse 79 11/09/21 07:37 Resp 20 H 11/09/21 07:37 BP 141/84 11/09/21 07:37 Pulse Ox 94 11/09/21 07:37 11/08/21 11/09/21 11/09/21 22:59 06:59 14:59 Intake Total 1820 / 3271.25 1401.25 / 3271.25 240 / 240 Output Total 800 / 2300 1500 / 2300 Balance 1020 / 971.25 -98.75 / 971.25 240 / 240 Physical Exam Narrative: Abdomen: Soft tender, less distended, no guarding or rigidity Urinary Catheter Management: Jennings: Cath Placed During This Visit: yes Reason for Continuing Indwelling Catheter: Perioperative Use in Selected Surgeries Urinary Catheter Date of Insertion: 11/07/21 Urinary Catheter Time of Insertion: 23:45 Data : 11/09/21 04:45 11/09/21 04:45 A&P Assessment and plan (1) Constipation: 76-year-old male admitted with suspected stercoral colitis currently on IV Zosyn. Clinically his abdomen is benign, less distended, minimally tender Continue with antibiotics Abdominal series tomorrow a.m. 4 L GoLytely today, but if he continues to remain constipated patient would benefit from a Gastrografin enema tomorrow which will be both diagnostic and therapeutic Status: Acute Attestations Medical Necessity Statement*: As per primary Coding Level of Care Code Acute Top Frame Fitter for [facility] Caroline Diagnoses Constipation K59.00
[2021-11-09] MEDS: polyethylene glycol 3350 Pkt 17 gm PO ×2 (10:32→18:42)
[2021-11-09] MEDS: sennosides 8.6 mg Tablet 17.2 MG PO ×2 (10:33→18:42)
[2021-11-09] MEDS: carbidopa-levodopa 25-100mg Tablet 2 EACH PO ×3 (10:33→20:20)
[2021-11-09] MEDS: docusate sodium 100 mg Capsule 200 MG PO ×2 (10:33→18:42)
[2021-11-09] MEDS: pantoprazole 40 mg SDV IVP (10:34)
[2021-11-09 12:00] VITALS: BP 151/91; PULSE 92; RESP 16; TEMP 37.4; O2SAT 94
--- NOTE | 2021-11-09 12:20 | P.PN_ITS ---
Subjective Subjective: Small bowel movement last night. He feels about the same. X-ray with persistent signs of ileus and constipation. He was assessed by speech therapy with recommendation of nectar thick liquid (and dysphagia. Diet when advancing solids). Thickening restriction added. Started on GoLytely, with some difficulties pulling it through a straw, his brought in a thicker smooth the straw which stable at time. Discussed in case still no success will likely could be given by NGT without need for thickening. reports some mild confusion. Vitals/I&O/Wt Last Vital Signs Temp 99.2 F 11/09/21 07:37 Pulse 79 11/09/21 07:37 Resp 20 H 11/09/21 07:37 BP 141/84 11/09/21 07:37 Pulse Ox 94 11/09/21 07:37 11/08/21 11/09/21 11/09/21 22:59 06:59 14:59 Intake Total 1820 / 1870 1401.25 / 3271.25 290 / 290 Output Total 800 / 800 1500 / 2300 Balance 1020 / 1070 -98.75 / 971.25 290 / 290 Physical Exam Narrative: is at bedside Const: COMMON NORMALS: alert GENERAL APPEARANCE: cooperative and frail appearing ORIENTATION/CONSCIOUSNESS: Yes awake OTHER: Generally weak. Resting tremor with Parkinson's disease. HENMT: COMMON NORMALS: normocephalic, EAC's normal, Normal external nose present and moist oral mucous membranes HEAD & SCALP: normocephalic NOSE: Normal external nose present EXTERNAL AUDITORY CANAL: EAC's normal Neck/C-Spine: COMMON NORMALS: no meningeal signs Chest: CHEST: Yes Symmetrical chest wall rise Resp: COMMON NORMALS: clear to auscultation bilaterally AUSCULTATION: clear to auscultation bilaterally Cardio: COMMON NORMALS: regular rate, regular rhythm and No murmurs present (Cardio) RATE: regular rate RHYTHM: regular rhythm GI: COMMON NORMALS: Soft to palpation and non-tender AUSCULTATION: Yes Hypoactive bowel sounds present PALPATION: Yes Soft to palpation Extremity: COMMON NORMALS: no pedal edema Neuro: COMMON NORMALS: moves all extremities SENSORIUM/ORIENTATION: Yes alert MENINGEAL SIGNS: Yes no meningeal signs Psych: COMMON NORMALS: mental status grossly normal Skin: COMMON NORMALS: no wounds NARRATIVE SKIN EXAM: Multiple moles RASHES: no rashes Urinary Catheter Management: Jennings: Cath Placed During This Visit: yes Reason for Continuing Indwelling Catheter: Perioperative Use in Selected Surgeries Urinary Catheter Date of Insertion: 11/07/21 Urinary Catheter Time of Insertion: 23:45 Data : 11/09/21 04:45 11/09/21 04:45 A&P Assessment and plan (1) Constipation: Small BM last night. Signs of persistent constipation, ileus on abdominal x- ray. Appreciate surgical conditions, he started on GoLytely. Difficulty is liquids have to be thickened due to risk of aspiration with dysphagia as per assessment. His is thickening liquids to nectar thick. Thicker straw is attempted. Discussed if no success GoLytely could go in through NGT without need for thickening. Fever so far has resolved continue. Zosyn with possible colitis. Stercoral colitis. Trial of CLD. Need long-term intensive bowel regimen to avoid recurrence of constipation. Status: Acute Plan Parkinson's disease: reports occasionally coughs with thin liquids. Requested speech therapy evaluation. GERD Hyperlipidemia Hypertension DVT Proflex is. Bilateral SCD On hospice care Attestations Medical Necessity Statement*: Continue admission for cyst management of severe constipation complicated with ileus in a gentleman with Parkinson's disease, dysphagia. Coding Level of Care Code Acute Pilot Plant Operator Helper for [facility] Diagnoses Constipation K59.00
[2021-11-09 16:00] VITALS: BP 151/92; PULSE 93; RESP 17; TEMP 38.1; O2SAT 93
--- NOTE | 2021-11-09 18:51 | PC.NURSE ---
NOTIFIED DR. MURRAY OF MISSED DOSE OF CARBIDOPA. SAID TO GIVE THE NEXT DOSE AT 1800
[2021-11-09] MEDS: docusate sodium 10 mg/mL (5ml) Liq 200 MG PO (19:04)
[2021-11-09 20:00] VITALS: BP 123/79; PULSE 89; RESP 16; TEMP 36.9; O2SAT 90
[2021-11-09] MEDS: mirtazapine 15 mg Tablet 7.5 MG PO (20:19)
[2021-11-10] VITALS: BP 146/87; PULSE 76; RESP 15; TEMP 36.9; O2SAT 93
[2021-11-10] MEDS: piperacillin-tazobactam 3.375 GM in sodium chloride 0.9% (plus) 50 ML IV (02:31)
[2021-11-10 04:00] VITALS: BP 151/86; PULSE 91; RESP 19; TEMP 36.9
[2021-11-10 04:34] LABS: Basophils % 0.7 %; Eosinophils # 0.3 10^3/uL (0.0-0.8); Eosinophils % 5.6 %; Hematocrit 41.3 % (42.0-52.0); Hemoglobin 13.7 g/dL (11.7-16.6); Lymphocytes # 1.3 10^3/uL (0.8-4.8); Lymphocytes % 21.7 %; Mean Corpuscular HGB Conc 33.2 g/dL (30.0-36.0); Mean Corpuscular Hemoglobin 29.1 pg (28.0-34.0); Mean Corpuscular Volume 87.9 fl (80-94); Mean Platelet Volume 10.2 fL (7.4-10.4); Monocytes # 0.6 10^3/uL (0.2-0.9); Monocytes % 10.8 %; Neutrophils # 3.63 10^3/uL (1.8-7.7); Nucleated Red Blood Cells % 0 %; Platelet Count 156 10^3/cmm (130-400); White Blood Count 5.9 10^3/uL (4.0-10.0)
[2021-11-10 05:02] LABS: Anion Gap 11.6 (5-19); Blood Urea Nitrogen 4 mg/dL (8-23); Calcium 8.4 mg/dL (8.5-10.5); Carbon Dioxide 25 mmol/L (22-29); Chloride 107 mmol/L (98-107); Glucose 89 mg/dL (65-115); Osmolality Calculated 286 mOsm/kg (285-295); Potassium 3.6 mmol/L (3.5-5.1); Sodium 140 mmol/L (136-145)
--- NOTE | 2021-11-10 06:00 | XR_ITS ---
WS: [id number] Exam: XR abdomen min 2V [id number] Date/Time of Exam: 11/10/2021 4:55 AM Reason For Exam: constipation Moderate gaseous distention of the colon. No free air. There has been evacuation of the some stool in the colon since the last exam performed 11/08/2021. Organ margins are obscured. Dextroscoliosis of th e L-spine that may be positional. Hardware partially visualized in the proximal right femur. XR/XR abdomen min 2V [id number] IMPRESSION: 1. Moderate gaseous distention of the colon that probably represents a mild col onic ileus. 2. There has been evacuation of most of the stool from the colon since the prev ious study.
[2021-11-10 06:42] LABS: Glucose Point of Care 83 mg/dL (70-110)
[2021-11-10 07:29] VITALS: BP 159/68; PULSE 88; RESP 16; TEMP 36.4; O2SAT 90
[2021-11-10] MEDS: polyethylene glycol 3350 Pkt 17 gm PO (09:28)
[2021-11-10] MEDS: carbidopa-levodopa 25-100mg Tablet 2 EACH PO ×2 (09:29→13:22)
--- NOTE | 2021-11-10 09:30 | PC.NURSE ---
Held morning meds in rounding with Dr Hudson, numerous BM's were reported and results of abd xray showed resolved constipation. D/t this the Dr stated that some of the bowel regiment medications for this morning could be held at this time, with exception of the miralax which will still be given.
--- NOTE | 2021-11-10 11:05 | P.DS_ITS ---
Discharge Providers Date of Admission: 11/08/21 12:33 Date of Discharge: November 10, 2021 Attending Provider at Admission: Gumaro Urena DO Attending Provider at Discharge: Robert Hudson Diagnoses at Discharge Discharge Diagnosis (1) Constipation: Status: Acute Reason for Visit Reason for Visit: CONSTIPATION Hospital Course Hospital Course Pleasant 76-year-old gentleman with Parkinson's disease was admitted for assessment management of severe constipation, ileus, stercoral colitis, with low-grade fevers noted in the hospital after 100.5, CT abdomen pelvis with constipation with possible fecal impaction, possible stercoral colitis. Abdominal x-ray series suggesting mild adynamic ileus, constipation. Due to lack initial success with bowel regimen as well as enemas was also seen by surgery, additional meds were given, and subsequently completed a jug of GoLytely with multiple bowel movements, on repeat x-ray with moderate gaseous distention of the colon with mild chronic ileus, not unexpected with his Parkinson's disease, and with repletion of most of the stool from colon since prior study. He will continue on bowel regimen after discharge. Avoid constipation. Will complete antibiotic course with Cipro and Flagyl. He has been tolerating clear liquid diet. However, on report by his he has been coughing with thin liquids at home. Was assessed by speech therapy, with recommendation of nectar thick liquids, and once he is advancing to solids to pur?e the solids to reduce risk of aspiration due to dysphagia. Continues on hospice care. Physical Exam Narrative: is at bedside Const: COMMON NORMALS: alert GENERAL APPEARANCE: cooperative and frail appearing ORIENTATION/CONSCIOUSNESS: Yes awake OTHER: Generally weak. Resting tremor with Parkinson's disease. HENMT: COMMON NORMALS: normocephalic, EAC's normal, Normal external nose present and moist oral mucous membranes HEAD & SCALP: normocephalic NOSE: Normal external nose present EXTERNAL AUDITORY CANAL: EAC's normal Neck/C-Spine: COMMON NORMALS: no meningeal signs Chest: CHEST: Yes Symmetrical chest wall rise Resp: COMMON NORMALS: clear to auscultation bilaterally AUSCULTATION: clear to auscultation bilaterally Cardio: COMMON NORMALS: regular rate, regular rhythm and No murmurs present (Cardio) RATE: regular rate RHYTHM: regular rhythm GI: COMMON NORMALS: Soft to palpation and non-tender AUSCULTATION: Yes Hypoactive bowel sounds present PALPATION: Yes Soft to palpation Extremity: COMMON NORMALS: no pedal edema Neuro: COMMON NORMALS: moves all extremities SENSORIUM/ORIENTATION: Yes alert MENINGEAL SIGNS: Yes no meningeal signs Psych: COMMON NORMALS: mental status grossly normal Skin: COMMON NORMALS: no wounds NARRATIVE SKIN EXAM: Multiple moles, seborrheic keratoses RASHES: no rashes Urinary Catheter Management: [place]: Cath Placed During This Visit: yes, but has since been removed by the nurse Reason for Continuing Indwelling Catheter: Decision to DC Catheter Urinary Catheter Date of Insertion: 11/07/21 Urinary Catheter Time of Insertion: 23:45 Date Urinary Catheter Removed: 11/10/21 Time Urinary Catheter Discontinued: 10:00 Discharge Data Studies Completed and Pending Completed Studies During Hospitalization Category Date Time Status CT abdomen pelvis wo con [id number] Urgent Cat Scan 11/06/21 17:17 Completed XR abdomen min 2V 50040 Routine Exams 11/08/21 11:25 Completed XR abdomen min 2V 16827 Routine Exams 11/10/21 06:00 Completed Radiology Impressions Abdomen/Pelvis CT 11/06/21 17:17 IMPRESSION: 1. Constipation with possible fecal impaction. 2. Possible stercoral colitis. Abdomen X-Ray 11/10/21 06:00 IMPRESSION: 1. Moderate gaseous distention of the colon that probably represents a mild colonic ileus. 2. There has been evacuation of most of the stool from the colon since the previous study. Laboratory Results WBC 5.9 10^3/uL (4.0-10.0) 11/10/21 03:16 RBC 4.70 10^6/uL (4.1-5.3) 11/10/21 03:16 Hgb 13.7 g/dL (11.7-16.6) 11/10/21 03:16 Hct 41.3 % (42.0-52.0) L 11/10/21 03:16 MCV 87.9 fl (80-94) 11/10/21 03:16 MCH 29.1 pg (28.0-34.0) 11/10/21 03:16 MCHC 33.2 g/dL (30.0-36.0) 11/10/21 03:16 RDW 12.0 % (12.1-15.1) L 11/10/21 03:16 Plt Count 156 10^3/cmm (130-400) 11/10/21 03:16 MPV 10.2 fL (7.4-10.4) 11/10/21 03:16 Neut % (Auto) 61.0 % 11/10/21 03:16 Lymph % (Auto) 21.7 % 11/10/21 03:16 [place] % (Auto) 10.8 % 11/10/21 03:16 Eos % (Auto) 5.6 % 11/10/21 03:16 Baso % (Auto) 0.7 % 11/10/21 03:16 Neut # (Auto) 3.63 10^3/uL (1.8-7.7) 11/10/21 03:16 Lymph # (Auto) 1.3 10^3/uL (0.8-4.8) 11/10/21 03:16 [place] # (Auto) 0.6 10^3/uL (0.2-0.9) 11/10/21 03:16 Eos # (Auto) 0.3 10^3/uL (0.0-0.8) 11/10/21 03:16 Baso # (Auto) 0.0 10^3/uL (0.0-0.1) 11/10/21 03:16 Nucleated RBC % (auto) 0 % 11/10/21 03:16 Nucleated RBCs # 0.0 /100WBC 11/10/21 03:16 PT 14.10 SECONDS (12.1-14.9) 11/06/21 21:45 INR 1.06 (0.8-1.2) 11/06/21 21:45 APTT 19.9 SECONDS (23.9-36.7) L 11/06/21 21:45 Sodium 140 mmol/L (136-145) 11/10/21 03:16 Potassium 3.6 mmol/L (3.5-5.1) 11/10/21 03:16 Chloride 107 mmol/L (98-107) 11/10/21 03:16 Carbon Dioxide 25 mmol/L (22-29) 11/10/21 03:16 Anion Gap 11.6 (5-19) 11/10/21 03:16 BUN 4 mg/dL (8-23) L 11/10/21 03:16 Creatinine 0.5 mg/dL (0.7-1.2) L 11/10/21 03:16 GFR Calculation Not Reportable 11/10/21 03:16 Glucose 89 mg/dL (65-115) 11/10/21 03:16 POC Glucose 83 mg/dL (70-110) 11/10/21 06:08 Calculated Osmolality 286 mOsm/kg (285-295) 11/10/21 03:16 Calcium 8.4 mg/dL (8.5-10.5) L 11/10/21 03:16 Total Bilirubin 0.6 mg/dL (0.15-1.2) 11/07/21 02:45 AST 11 U/L (0-40) 11/07/21 02:45 ALT < 5 U/L (0-41) 11/07/21 02:45 Alkaline Phosphatase 69 IU/L (40-130) 11/07/21 02:45 Total Protein 6.8 g/dL (6.6-8.7) 11/07/21 02:45 Albumin 3.9 g/dL (3.5-5.2) 11/07/21 02:45 Globulin 2.9 g/dL (1.3-4.6) 11/07/21 02:45 Lipase 24 U/L (13-60) 11/06/21 17:10 Urine Color Colorless (Yellow) 11/06/21 17:20 Urine Appearance Clear (CLEAR) 11/06/21 17:20 Urine pH 7 (5-7) 11/06/21 17:20 Ur Specific [place] 1.010 (1.005-1.030) 11/06/21 17:20 Urine Protein Neg (Negative) 11/06/21 17:20 Urine Glucose (UA) Norm (Normal) 11/06/21 17:20 Urine Ketones 1+ (Negative) H 11/06/21 17:20 Urine Blood Neg (Negative) 11/06/21 17:20 Urine Nitrate Negative (Negative) 11/06/21 17:20 Urine Bilirubin Neg (Negative) 11/06/21 17:20 Urine Urobilinogen Norm mg/dL (Negative) 11/06/21 17:20 Ur Leukocyte Esterase Negative (Negative) 11/06/21 17:20 Vitals Last Vital Signs Temp 97.6 F 11/10/21 07:29 Pulse 88 11/10/21 07:29 Resp 16 11/10/21 07:29 BP 159/68 11/10/21 07:29 Pulse Ox 90 11/10/21 07:29 Discharge Plan Discharge Patient Disposition: Hospice - Home Condition: Stable Prescriptions: New polyethylene glycol 3350 17 gram Powder In Packet 17 g PO BID Qty: 100 0RF Metamucil (with sugar) 3.4 gram Powder In Packet 1 ea PO BID Qty: 180 2RF ciprofloxacin HCl 500 mg tablet 500 mg PO BID Qty: 10 0RF metronidazole 500 mg tablet 500 mg PO Q8H 5 Days Qty: 15 0RF Continued omeprazole 20 mg capsule,delayed release(DR/EC) 20 mg PO DAILY 0RF carbidopa-levodopa [Sinemet] 25-100 mg tablet See Rx Instructions PO TID Qty: 720 3RF Rx Instructions: 2 tablets at 6AM, 2 tablets at 12PM, 2 tablets at 6PM, and 2 tablets at BEDTIME (DME) Lift Chair See Rx Instructions .Route .MEDSUPPLY Qty: 1 0RF Rx Instructions: As directed mirtazapine 7.5 mg Tablet 7.5 mg PO BEDTIME 0RF Tylenol 325 mg Tablet 325 mg PO QID PRN (Reason: Pain) 0RF ondansetron HCl 4 mg Tablet 4 mg PO Q4H PRN (Reason: Nausea) 0RF Boost 0.04 gram- 1 kcal/mL Liquid 1 ea PO DAILY 0RF Discharge Orders: Discharge Order (Routine); Ordered 11/10/21 Ordered By: Robert Hudson Referrals: [facility] [Outside] Carissa Pacheco NP [Referring] - 4-7 days Discharge Diet: Advance as tolerated, As Directed and Full LIquid Discharge Activity: Increase activity as tolerated Patient Instructions: Ciprofloxacin (By mouth) (Cipro), Laxative, Bulk-forming (By mouth) (Fiber, Benefiber, Citrucel, Equalactin), Metronidazole (By mouth), Polyethylene Glycol 3350 (By mouth) (Miralax, Healthylax..., Constipation (ED), Abdominal Pain (ED), Opioid Safety Activity Restrictions/Additional Instructions: Please take your medicine as instructed for constipation with Metamucil, MiraLAX starting tomorrow. Have patient follow-up with his primary care provider for further evaluation of symptoms in the next 4-7 days. Continue to thicken liquids to nectar thick consistency to reduce chance of aspiration. Once able to advance to solids please puree solids also to reduce chance of aspiration. Discharge Attestations Time Spent in Discharge Care*: greater than 30 min Quality Metrics Clinical Quality Measures [ No reported AMI, CVA or VTE this stay] Coding Level of Care Code Acute [facility] note Diagnoses Constipation K59.00
--- NOTE | 2021-11-10 11:13 | PC.NURSE ---
IV pt IV infiltrated upon assessment this morning, IV pulled, during heart to heart rounding Dr rios stated that no IV needed to be placed d/t pt discharging.
[2021-11-10 11:33] VITALS: BP 112/68; PULSE 86; RESP 17; TEMP 37.2; O2SAT 92
[2021-11-10] MEDS: acetaminophen 325 mg Tablet 650 MG PO (13:23)
--- NOTE | 2021-11-10 15:05 | PC.NURSE ---
Echols and bladder scan pt echols removed at 1000, pt was bladder scanned before discharge, the most seen was 35mL.
[2021-11-10 15:10] VITALS: BP 112/68; PULSE 86; RESP 17; TEMP 37.2; O2SAT 92
== END 2021-11-10 14:50 | disposition hospice, home (50) | DRG 390 ==
LOC: ER 20:21 → MEDSURG 20:58
PROVIDERS: Admitting Provider Internal Medicine; Emergency Provider Emergency Medicine; Visit Provider Internal Medicine
DX: K56.41 Fecal impaction (principal); K52.89 Other specified noninfective gastroenteritis and colitis; R13.10 Dysphagia, unspecified; G20 Parkinson's disease; K21.9 Gastro-esophageal reflux disease without esophagitis; E78.5 Hyperlipidemia, unspecified; I10 Essential (primary) hypertension
CPT/HCPCS: 36415; 36416; 51702; 74019; 74176; 80048; 80053; 81003; 82962; 83690; 85025; 85610; 85730; 92523; 92610; 96372; 99285; C9113; G0378; J2212; J2543